=== PATIENT | male | born 1985 | race Hispanic/Latino ===

== ENCOUNTER 2017-01-12 20:54 | Emergency (ER) | payer OTHER ==
[~2017-01-12] VITALS: Ht 177.8 cm; Wt 56.8 kg
[~2017-01-12 20:54] MED LIST: AMOX-366 PO; CLON0.2T PO; HYDR50CA3 PO; NPR500T PO; [UNRECOGNIZED DRUG - CODE] PO
[2017-01-12 20:56] VITALS: BP 132/76; PULSE 90; RESP 15; O2SAT 100
--- NOTE | 2017-01-12 22:19 | ED.REPORT ---
HPI-Dental/Mouth Prob Date of Service Jan 12, 2017 ED Provider: Benjie Honorio Patient is a 31 year old male who presents to the ED complaining of tooth pain in his right lower jaw onset yesterday. He denies fever, chills, nausea, or any other symptoms. He plans to make an appointment for follow up with a dentist. Nursing Notes Stated Complaint: TOOTH ACHE Chief Complaint: Dental Nursing Notes Reviewed: Yes Allergies: Coded Allergies: No Known Allergies (Verified Allergy, Unknown, 01/12/17) Scheduled Amoxicillin/Clav K 875-125 mg (Augmentin 875-125 mg) 1 Each Tablet 1 TABLET PO BID Clonidine (Clonidine) 0.2 Mg Tablet 0.2 MG PO BID Penicillin V Potassium (Penicillin V Potassium) 500 Mg Tablet 500 MG PO QID Scheduled PRN Hydroxyzine Pamoate (HydrOXYzine Pamoate) 50 Mg Capsule 50 MG PO TID PRN PRN For Itching Naproxen (Naproxen) 500 Mg Tab 500 MG PO BID PRN PRN For Pain Naproxen (Naproxen) 500 Mg Tab 500 MG PO BID PRN PRN For Pain Phenobarb/Hyoscy/Atropine/Scop ( Elixir) 16.2 Mg/5 Ml Elixir 15 ML PO QID PRN PRN For GI Cramps Miscellaneous Medications ([None]) General Time Seen by MD: 22:18 Chief Complaint Tooth pain Hx Obtained From: Patient Arrived By: Walk-in Past Medical History Past Medical History Opioid abuse (Heroin) Past Surgical History none reported Family History noncontributory Smoking History Current Every Day Smoker Social History Alcohol Use: Denies alcohol use Drug Use: Other Other Social History: Homeless Ambulatory Status Independent Review of Systems Constitutional: Denies: Chills, Fever Ears / Nose / Throat: Reports: Toothache GI: Denies: Nausea, Vomiting Complete sys rev & neg: except as marked. Physical Exam Initial Vital Signs Vital Signs (First) Date Time Temp Pulse Resp B/P Pulse Ox O2 Delivery O2 Flow Rate FiO2 01/12/17 20:56 36.6 90 15 132/76 100 Room Air Initial VS: Reviewed General/Constitutional: Well-developed Head / Eyes: Atraumatic, Normocephalic Respiratory: No respiratory distress Abdomen / GI: Soft, Non-tender Skin: Warm, Dry Neurologic: Alert, Oriented, Nonfocal Psychiatric: Mood/affect normal, Behavior normal, Normal thought content ENT: No trismus No obvious abscess No jaw or facia swelling Multiple dental caries and cratered out teeth Neck: Atraumatic, No meningismus, Full range of motion Re-Eval/Medical Decision Med Decision/Clinical Course No obvious periapical abscess or Geo's angina, will plan to start antibiotics and pain control. Recommend close interval follow-up. Return precautions given. Re-Evaluation/Progress : Time of Eval: 22:33 Re-Evaluation/Progress Note: Discussed plan for discharge with dental follow up. Patient understands and agrees with plan. All questions addressed at this time. Counseled Regarding: Diagnosis, Need for follow-up, When/why to return to ED Discharge & Departure Primary Impression: Dental caries Disposition: Home Discharge Condition All VS Reviewed: Yes Condition: Stable Additional Instructions: Use naproxen and penicillin as prescribed. Call a dentist tomorrow for further evaluation and treatment. Return to the ER if you develop severe worsening swelling in your face, inability to swallow, or other concerns. Referrals: NOPCP (PCP) Scribe Attestation Portions of this note were transcribed by Blanquita Godfrey. I, Dr. Waldrop personally performed the history, physical exam and medical decision-making; I reviewed and confirmed the accuracy of the information in the transcribed note. Signed by: Blanquita Godfrey 01/12/2017, 2236 Honorio Waldrop DO Jan 12, 2017 22:19 BLANQUITA GODFREY Jan 12, 2017 22:24
[2017-01-12] MEDS ORDERED: NPR500T PO (22:25)
[2017-01-12] MEDS ORDERED: PENI500T PO (22:25)
[2017-01-12 23:21] VITALS: BP 128/75; PULSE 88; RESP 16; O2SAT 96
== END 2017-01-12 22:30 | disposition home or self-care (01) ==
LOC: SED 20:54
DX: K02.9 Dental caries, unspecified (principal); F17.200 Nicotine dependence, unspecified, uncomplicated; Z59.0 Homelessness

== ENCOUNTER 2017-03-08 23:09 | Emergency (ER) | payer OTHER ==
[~2017-03-08 23:09] MED LIST changes: +PENI500T PO
[2017-03-08 23:15] VITALS: BP 118/74; PULSE 70; RESP 14; O2SAT 100
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
[2017-03-09 01:23] VITALS: BP 120/72; PULSE 72; RESP 16; O2SAT 99
--- NOTE | 2017-03-09 08:37 | DRSVH ---
PROCEDURE: X-RAY RIGHT SHOULDER, MINIMUM TWO VIEWS ([id number]) INDICATIONS: fall, pain TECHNIQUE: 3 views of the shoulder were acquired. COMPARISON: [facility], CR, XR CLAVICLE COMP RT, 03/09/2017, 0:12. FINDINGS: Bones: No dislocations. No suspicious bony lesions. Visualized ribs appear intact. Mid shaft supe rior angulated right clavicular fracture noted, with fracture margins in apposition. Soft tissues: No suspicious soft tissue calcifications. IMPRESSION: Midshaft mildly angulated right clavicular fracture. No additional trauma found. Dictated by: Alan Cook M.D. on 03/09/2017 at 8:35 Approved by: Alan Cook M.D. on 03/09/2017 at 8:35
--- NOTE | 2017-03-09 08:40 | DRSVH ---
PROCEDURE: X-RAY RIGHT CLAVICLE, COMPLETE ([id number]) INDICATIONS: fall, pain TECHNIQUE: 2 views of the clavicle were acquired. COMPARISON: None. FINDINGS: Bones: No dislocations. No suspicious bony lesions. There is a superior angulated mid shaft right clavicular fracture without evidence of trauma to the acromioclavicular or coracoclavicular ligaments . Soft tissues: No suspicious soft tissue calcifications. IMPRESSION: Superior angulated mid right clavicular fracture but with fracture margins in apposition. Dictated by: Alan Cook M.D. on 03/09/2017 at 8:36 Approved by: Alan Cook M.D. on 03/09/2017 at 8:38
--- NOTE | 2017-03-09 08:41 | DRSVH ---
PROCEDURE: X-RAY RIGHT WRIST COMPLETE, MINIMUM THREE VIEWS ([id number]) INDICATIONS: fall, pain TECHNIQUE: 4 views of the wrist were acquired. COMPARISON: [facility], CR, HAND MIN 3VW (LT), 10/27/2012, 22:22. FINDINGS: Bones: No fractures or dislocations. No suspicious bony lesions. Scaphoid view: No trauma. Soft tissues: No suspicious soft tissue calcifications. IMPRESSION: No trauma. Dictated by: Alan Cook M.D. on 03/09/2017 at 8:39 Approved by: Alan Cook M.D. on 03/09/2017 at 8:39
== END 2017-03-09 01:23 | disposition home or self-care (01) ==
LOC: SED 23:09
DX: S42.001A Fracture of unspecified part of right clavicle, initial encounter for closed fracture (principal); S63.501A Unspecified sprain of right wrist, initial encounter; V18.0XXA Pedal cycle driver injured in noncollision transport accident in nontraffic accident, initial encounter; Y93.55 Activity, bike riding; Y92.9 Unspecified place or not applicable; Y99.8 Other external cause status; F17.200 Nicotine dependence, unspecified, uncomplicated

== ENCOUNTER 2017-07-08 00:07 | Emergency (ER) | payer OTHER ==
[~2017-07-08 00:07] MED LIST changes: +0.9% Sodium Chloride 0 ML ONE; -AMOX-366 PO; -PENI500T PO
[2017-07-08] MEDS ORDERED: Succinylcholine Chloride 20 mg/mL 5 mL Inj ONE (00:08)
[2017-07-08] MEDS ORDERED: Etomidate 2 mg/mL 20 mL Inj IV ONE (00:08)
[2017-07-08 00:31] LABS: BASOPHILS % (AUTO) 0.2 % (0-3); EOSINOPHILS % (AUTO) 0.4 % (0-5); MONOCYTES % (AUTO) 5.5 % (4-12); Mean Corpuscular Hemoglobin 30.4 pg (27.0-35.0); Mean Corpuscular Volume 85.3 fL (81-100); NEUTROPHILS % (AUTO) 76.4 % (40-74); Platelet Count 231 bil/L (150-400)
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
[2017-07-08 00:43] LABS: INR 1.04 ratio
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
== END 2017-07-08 01:23 | disposition short-term general hospital (02) ==
LOC: SED 00:07 → EDUNIT# 00:07 → EDBD 00:07 → SED 01:23
DX: S09.90XA Unspecified injury of head, initial encounter (principal); S42.492A Other displaced fracture of lower end of left humerus, initial encounter for closed fracture; S82.202A Unspecified fracture of shaft of left tibia, initial encounter for closed fracture; V03.12XA Pedestrian on skateboard injured in collision with car, pick-up truck or van in traffic accident, initial encounter; Y93.51 Activity, roller skating (inline) and skateboarding; Y92.410 Unspecified street and highway as the place of occurrence of the external cause; Y99.8 Other external cause status; F17.200 Nicotine dependence, unspecified, uncomplicated
CPT/HCPCS: 31500; 36415; 70450; 71260; 72125; 74177; 80053; 85025; 85610; 85730; 86850; 94799; 99291; 99292; G0480; J0330; Q9967

== ENCOUNTER 2017-07-20 17:01 | Emergency (ER) | payer OTHER ==
[~2017-07-20] VITALS: Ht 175.3 cm; Wt 56.0 kg
[~2017-07-20 17:01] MED LIST changes: -0.9% Sodium Chloride 0 ML ONE
[2017-07-20 17:28] VITALS: BP 130/82; PULSE 126; O2SAT 100
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
[2017-07-20 19:59] VITALS: BP 125/79; PULSE 99; O2SAT 100
== END 2017-07-20 20:00 | disposition home or self-care (01) ==
LOC: SED 17:01
DX: S32.89XD Fracture of other parts of pelvis, subsequent encounter for fracture with routine healing (principal); S42.492D Other displaced fracture of lower end of left humerus, subsequent encounter for fracture with routine healing; S72.8X2D Other fracture of left femur, subsequent encounter for closed fracture with routine healing; S82.492D Other fracture of shaft of left fibula, subsequent encounter for closed fracture with routine healing; S82.292D Other fracture of shaft of left tibia, subsequent encounter for closed fracture with routine healing; G89.18 Other acute postprocedural pain; V00-Y99 External causes of morbidity; Y93.51 Activity, roller skating (inline) and skateboarding; Y99.8 Other external cause status; Y92.410 Unspecified street and highway as the place of occurrence of the external cause; F17.200 Nicotine dependence, unspecified, uncomplicated; F11.10 Opioid abuse, uncomplicated; Z59.1 Inadequate housing